=== PATIENT | male | born 1950 | race Asian ===

== ENCOUNTER 2017-09-16 09:56 | Emergency (ER) | payer MEDICARE, OTHER ==
[2017-09-16 11:55] VITALS: BP 141/95
--- NOTE | 2017-09-16 12:32 | UC ---
Kyle Mendez Gabriel, scribed for Celia Tinoco MD on 09/16/17 at 1223 . Eye Complaint HPI - HPI Summary HPI Summary: This patient is a 67 year old M presenting to [facility] [place] accompanied by his with a chief complaint of left eye pain since 6 days ago. The patient rates the pain 5/10 in severity. Symptoms moderately alleviated by Tylenol. Patient reports a painful rash on the left side of his face that spreads into his hairline, swollen and painful left lymph node, low grade fever 99F, decreased vision in the left eye, GONZALEZ, and a swollen left eye lid. Pt states his scalp is senstive. The pain is affecting his sleep, he saw his eye doctor yesterday and they found nothing significant but pt states did not have rash at this time just some eye discomfort. He has a follow up appointment with his PCP tomorrow. Pt states a family member saw rash today, concerned for shingles and sent pt for treatment . Patients medication reviewed during this visit. - History of Current Complaint Chief Complaint: UCRash Stated Complaint: RASH Time Seen by Provider: 09/16/17 12:11 Hx Obtained From: Patient Onset/Duration: Lasting Days - 5, Still Present Timing: Constant Severity Initially: Mild Severity Currently: Moderate Pain Intensity: 5 Pain Scale Used: 0-10 Numeric Location of Injury: Eye Lid (upper) Aggravating Factor(s): Nothing Alleviating Factor(s): Nothing Associated Signs And Symptoms: Positive: Drainage (Clear), Fever, Swelling - Allergies/Home Medications Allergies/Adverse Reactions: Allergies Allergy/AdvReac Type Severity Reaction Status Date / Time No Known Allergies Allergy Verified 09/16/17 11:45 Home Medications: Home Medications Acetaminophen [Acetaminophen Extra Strength] 500 mg PO ONCE 09/16/17 [History Confirmed 09/16/17] PMH/Surg Hx/FS Hx/Imm Hx Previously Healthy: Yes Other History Of: Negative For: Hepatitis B, Hepatitis C - Surgical History Surgical History: Yes Surgery Procedure, Year, and Place: inguinal hernia 2015 - Family History Known Family History: Positive: Hypertension Negative: Renal Disease, Respiratory Disease, Seizure Disorder - Social History Occupation: Retired Lives: With Family Alcohol Use: None Substance Use Type: None Smoking Status (MU): Never Smoked Tobacco Review of Systems Constitutional: Fever Skin: Rash - that is painful Eyes: Blurred Vision, Other - swollen upper eye lid on the left ENT: Other - swollen lymph nodes on the left Neurological: Headache All Other Systems Reviewed And Are Negative: Yes Physical Exam Triage Information Reviewed: Yes Appearance: Well-Appearing, No Pain Distress, Well-Nourished Vital Signs: Initial Vital Signs Temp 99.4 F 09/16/17 11:47 Pulse 62 09/16/17 11:47 Resp 16 09/16/17 11:47 BP 141/95 09/16/17 11:47 Pulse Ox 100 09/16/17 11:47 Eyes: Positive: Other: - JULIO, EOM intact and full no drainage no photophobia Pt with vesicular rash left frontal area and left upper lid ENT Exam: Normal ENT: Positive: Normal ENT inspection, Pharynx normal, TMs normal Dental Exam: Normal Neck exam: Normal Neck: Positive: Supple, Nontender Respiratory Exam: Normal Respiratory: Positive: Chest non-tender, Lungs clear, Normal breath sounds, No respiratory distress Cardiovascular Exam: Normal Cardiovascular: Positive: RRR, No Murmur Musculoskeletal Exam: Normal Neurological Exam: Normal Psychological Exam: Normal Skin: Positive: Other - left upper frontal area, left hairline vesicular lesion , yellow crusted top, diffusely erythematous base tender to palp Re-Evaluation - Re-Evaluation First Eval Re-Evaluation Time: 12:39 Change: Unchanged Comment: I contacted Dr. Davis at [facility] and they have agreed to see the patient within the hour. I have notified the patient and will be discharging him to follow up there. Eye Complaint Course/Dx - Course Course Of Treatment: Pt with rash to forehead, hair and left upper lid concerning for shingles. pt with sx x 5 days. d/w pt at length - will start valtrex, gabapentin. d/w Dr. Rahman office - pt to go directly there from . Pt and comfortable and in agreement with plan. pt also with PCP appt tomorrow. BP noted and advised to follow up with PCP - Differential Dx/Diagnosis Provider Diagnoses: shingles left V1 distribution. Elevated blood pressure without a previous diagnoses of hypertension Discharge - Discharge Plan Condition: Stable Disposition: HOME Prescriptions: Gabapentin CAP(*) [Neurontin 100 mg CAP(*)] 100 mg PO TID #30 cap ValACYclovir (*) [Valtrex 1 GM(*)] 1 gm PO TID #30 tab Patient Education Materials: Sawyer (ED) Referrals: Elida Washington MD [Primary Care Provider] - Additional Instructions: Your blood pressure was elevated during today's visit. Please have it rechecked at your appointment tomorroww Take Valtrex 3 times a day as prescribed Okay to alternate ibuprofen (advil, motrin)400mg and tylenol every 3hours for pain. Take with food. Do NOT take for more than 4-5 days Take gabapentin as prescribed Keep your appointment with your primary doctor tomorrow as scheduled The eye doctor, Dr. Sampson, at [facility] would like to see you today - go immediately to her office as she is expecting you and will check you between her other scheduled appointment The documentation as recorded by the Kyle rutledge Gabriel accurately reflects the service I personally performed and the decisions made by me, Celia Tinoco MD.
== END 2017-09-16 12:45 | disposition home or self-care (01) ==
LOC: UCEAST 09:56
DX: B02.9 Zoster without complications (principal); H02.844 Edema of left upper eyelid; R59.0 Localized enlarged lymph nodes; R03.0 Elevated blood-pressure reading, without diagnosis of hypertension
CPT/HCPCS: 99212; G0463

== ENCOUNTER → 2018-09-21 12:04 | Emergency (ER) | payer MEDICARE, OTHER ==
[~2018-09-21 12:04] MED LIST: Iohexol 300* (CONTRAST) 10 ML SDV IV ONE; NS 0.9% 1000 ML** 1,000 ML IV ONE; Pantoprazole TAB * 40 MG TAB PO ONE
--- NOTE | 2018-09-21 12:57 | ED ---
Abdominal Pain/Male - HPI Summary HPI Summary: Pt is a 68 y/o M presenting to the ED with a chief complaint of abd pain onset last night post-colonoscopy. Pt reports pain in the epigastric region and higher blood pressure than normal. Pt denies nausea, vomiting, or blood in stool. - History of Current Complaint Chief Complaint: EDAbdPain Stated Complaint: COLONOSCOPY YESTERDAY NOW PAIN Time Seen by Provider: 09/21/18 12:34 Hx Obtained From: Patient Onset/Duration: Sudden Onset, Lasting Hours, Still Present Timing: Constant, Lasting Hours Severity Initially: Mild Severity Currently: Mild Pain Intensity: 3 Pain Scale Used: 0-10 Numeric Location: Epigastric Radiates: No Character: Cramping Aggravating Factor(s): Nothing Alleviating Factor(s): Nothing Associated Signs And Symptoms: Negative: Blood in Stool, Nausea, Vomiting - Allergies/Home Medications Allergies/Adverse Reactions: Allergies Allergy/AdvReac Type Severity Reaction Status Date / Time No Known Allergies Allergy Verified 09/21/18 12:18 PMH/Surg Hx/FS Hx/Imm Hx Previously Healthy: Yes Endocrine/Hematology History: Denies: Hx Diabetes Cardiovascular History: Denies: Hx Hypertension - Surgical History Surgery Procedure, Year, and Place: inguinal hernia 2016 Infectious Disease History: No Infectious Disease History: Denies: Hx Shingles, Traveled Outside the [place] in Last 30 Days - Family History Known Family History: Positive: Hypertension Negative: Renal Disease, Respiratory Disease, Seizure Disorder - Social History Alcohol Use: None Substance Use Type: Reports: None Smoking Status (MU): Never Smoked Tobacco Review of Systems Negative: Fever Positive: Abdominal Pain. Negative: Vomiting, Nausea All Other Systems Reviewed And Are Negative: Yes Physical Exam - Summary Physical Exam Summary: Appearance: Well appearing, no pain distress Skin: warm, dry, reflects adequate perfusion Head/face: normal Eyes: EOMI, JULIO ENT: normal Neck: supple, non-tender Respiratory: CTA, breath sounds present Cardiovascular: RRR, pulses symmetrical Abdomen: mild epigastric tenderness, soft Musculoskeletal: normal, strength/ROM intact Neuro: normal, sensory motor intact, A&Ox3 Triage Information Reviewed: Yes Vital Signs On Initial Exam: Initial Vitals Temp Pulse Resp BP Pulse Ox 97.8 F 56 17 145/86 100 09/21/18 12:14 09/21/18 12:14 09/21/18 12:14 09/21/18 12:14 09/21/18 12:14 Vital Signs Reviewed: Yes Diagnostics - Vital Signs Vital Signs Temp Pulse Resp BP Pulse Ox 09/21/18 12:14 97.8 F 56 17 145/86 100 - Laboratory Result Diagrams: 09/21/18 13:14 09/21/18 13:14 Lab Statement: Any lab studies that have been ordered have been reviewed, and results considered in the medical decision making process. - CT Abd/pelv CT CT Interpretation Completed By: Radiologist Summary of CT Findings: 1.No evidence for acute finding. 2.Large amount retained stool. ED physician has reviewed this report. - EKG 1327 Cardiac Rate: Bradycardia - 49bpm EKG Rhythm: Sinus Bradycardia ST Segment: Normal Ectopy: None Abdominal Pain Male Course/Dx - Course Course Of Treatment: Pt is a 68 y/o M presenting to the ED with a chief complaint of abd pain onset last night post-colonoscopy. Pt reports pain in the epigastric region and higher blood pressure than normal. Pt denies nausea, vomiting, or blood in stool. The abd/pelv CT is negative for any acute findings. He will be discharged with a dx of abd pain, nonspecific. - Diagnoses Provider Diagnoses: Nonspecific abdominal pain Discharge - Sign-Out/Discharge Documenting (check all that apply): Patient Departure Patient Received Moderate/Deep Sedation with Procedure: No - Discharge Plan Condition: Stable Disposition: HOME Referrals: Elida Washington MD [Primary Care Provider] - Additional Instructions: Please follow up with your primary care provider in the next 3 days. Return to the ED with any new or worsening symptoms. - Attestation Statements Document Initiated by Scribe: Yes Documenting Scribe: Hayley Carias Provider For Whom Otilio is Documenting (Include Credential): Jaison Borja MD. Scribe Attestation: Hayley Mendez, scribed for Jaison Borja MD. on 09/21/18 at 1610. Status of Scribe Document: Ready
[2018-09-21 13:21] LABS: ABS Basophils 0 10^3/ul (0-0.2); ABS Eosinophils 0.1 10^3/ul (0-0.6); ABS Lymphocytes 1.3 10^3/ul (1.0-4.8); ABS Monocytes 0.4 10^3/ul (0-0.8); ABS Neutrophils 3.4 10^3/ul (1.5-7.7); ABS Nucleated RBC 0 10^3/ul; Eosinophil % 2.2 %; Hematocrit 43 % (42-52); Hemoglobin 14.3 g/dl (14.0-18.0); Lymphocyte % 24.9 %; Mean Corpuscular HGB Conc 34 g/dl (31-36); Mean Corpuscular Hemoglobin 31 pg (27-31); Mean Corpuscular Volume 93 fL (80-94); Mean Platelet Volume 8.6 fL (7.4-10.4); Nucleated Red Blood Cells % 0.1; Platelet Count 229 10^3/ul (150-450); Red Blood Count 4.63 10^6/ul (4.00-5.40); Red Cell Distribution Width 13 % (10.5-15); White Blood Count 5.2 10^3/ul (3.5-10.8)
[2018-09-21 13:39] LABS: ALT 21 U/L (7-52); AST 31 U/L (13-39); Albumin 4.1 g/dL (3.2-5.2); Albumin/Globulin Ratio 1.4 (1-3); Alkaline Phosphatase 69 U/L (34-104); Anion Gap 6 mmol/L (2-11); BUN/Creatinine Ratio 16.8 (8-20); Blood Urea Nitrogen 18 mg/dL (6-24); C Reactive Protein < 1.00 mg/L (<8.01); CO2 Carbon Dioxide 29 mmol/L (22-32); Calcium 9.1 mg/dL (8.6-10.3); Chloride 104 mmol/L (101-111); EGFR African American 83.7 (>60); EGFR Non-African American 69.1 (>60); Globulin 2.9 g/dL (2-4); Glucose 96 mg/dL (70-100); Potassium 3.8 mmol/L (3.5-5.0); Sodium 139 mmol/L (135-145)
[2018-09-21 16:48] VITALS: BP 130/84
--- NOTE | 2018-09-21 19:04 | CONS ---
GASTROENTEROLOGY CONSULT: DATE: 09/21/18 - EMERGENCY DEPT CONSULTING PHYSICIAN: Dr. Jaison Borja, Emergency Room. REASON FOR CONSULTATION: Epigastric pain the day after colonoscopy. HISTORY: This generally quite heathy 68-year-old man, last night around 7 or 8 p.m., began noting an epigastric distress. It was not well localized and central. There was no nausea, vomiting, diarrhea, or fever. He slept well overnight and in the morning had his normal breakfast and went to a [employer]redith [employer] class for 45 minutes. He then received a phone call from the endoscopy nurses as a routine followup. He complained of the epigastric distress and there was no obvious explanation during a sequence of phone calls and he was directed to the emergency room. Immediately after the procedure, he was feeling fine, he went home. He took a nap. Then he had lunch, which was considerable including chicken, vegetables, a banana and more. A few hours later, he had dinner that was also a sizable meal. He first began having some distress afterwards. Today mid-day, he just continues to complain of a little soreness in the epigastric area. He says he never had anything like this before. PAST MEDICAL HISTORY: Generally negative. Three of his 7 hospital visits since 2010 had been for colon polyps or their followup. He was seen once for dizziness and giddiness, 09/21/13. In 2010, he was on no medications and continues that way other than possibly a vitamin D supplement. SOCIAL HISTORY: He is and he lives in [place] since 1990. REVIEW OF SYSTEMS: No history of syncope, palpitations, seizure, TIA, CVA, IN, valvular disease, hepatitis, or gross hematuria. He has not had any prostate problems. EXAM: He is a slender, healthy-appearing man in no distress at this time. Temperature 97.8, pulse 56, blood pressure 125/86. HEENT exam is unremarkable. His lungs are clear and heart sounds are regular. The abdomen is flat with normal bowel sounds. The abdomen is soft. There is some subjective tenderness to deep palpation and a christina shaped area in the epigastrium. Rectal deferred. Extremities show no edema. LABS: White count 5.2, hemoglobin 14.3. LFTs normal. CRP less than 1. Lipase 21. IMAGING REVIEW: CT scan showed no acute finding. IMPRESSION: Most likely this is abdominal wall pain, somehow related to the procedure. There is no sign of any intraluminal gastrointestinal dysfunction. He has been able to eat. His blood pressure is up just a little bit, not worthy of intervention at the moment. I agree with short-term empiric PPI therapy in case there is an unexplained peptic component to this. [id number]/CPS #: [id number] MTDD
== END | disposition home or self-care (01) ==
LOC: ED 12:04
DX: R10.13 Epigastric pain (principal); R03.0 Elevated blood-pressure reading, without diagnosis of hypertension; R11.2 Nausea with vomiting, unspecified; R00.1 Bradycardia, unspecified; Z98.890 Other specified postprocedural states
CPT/HCPCS: 36415; 74177; 80053; 83690; 84484; 85025; 86140; 93005; 96360; 96361; 99283; A9270-GY; Q9967

== ENCOUNTER 2019-01-30 19:07 | Emergency (ER) | payer MEDICARE, OTHER ==
[2019-01-30] MEDS ORDERED: Acetaminophen TAB* 325 MG PO ONE (20:03)
--- NOTE | 2019-01-30 20:03 | UC ---
Complaint Male HPI - HPI Summary HPI Summary: sudden onset this evening of pain with urination and fever---decrease po intake today--- - History of Current Complaint Chief Complaint: UCGU Stated Complaint: BLOOD IN URINE Time Seen by Provider: 01/30/19 19:44 Hx Obtained From: Patient Onset/Duration: Sudden Onset, Lasting Hours Timing: Constant Severity Initially: Mild Severity Currently: Moderate Character: Burning Aggravating Factor(s): Voiding Associated Signs And Symptoms: Positive: Fever, Hematuria, Dysuria, Appetite - decreased. Negative: Back Pain, Vomiting(# Of Episodes =), Penile Swelling - Allergies/Home Medications Allergies/Adverse Reactions: Allergies Allergy/AdvReac Type Severity Reaction Status Date / Time No Known Allergies Allergy Verified 01/30/19 19:36 Home Medications: Home Medications NK [No Home Medications Reported] 01/30/19 [History Confirmed 01/30/19] PMH/Surg Hx/FS Hx/Imm Hx Previously Healthy: Yes Other History Of: Negative For: Hepatitis B, Hepatitis C - Surgical History Surgical History: Yes Surgery Procedure, Year, and Place: inguinal hernia 2015 - Family History Known Family History: Positive: Hypertension Negative: Renal Disease, Respiratory Disease, Seizure Disorder - Social History Occupation: Employed Part-time Lives: With Family Alcohol Use: None Substance Use Type: None Smoking Status (MU): Never Smoked Tobacco Review of Systems All Other Systems Reviewed And Are Negative: Yes Constitutional: Positive: Fever, Chills Skin: Positive: Negative Eyes: Positive: Negative ENT: Positive: Negative Respiratory: Positive: Negative Cardiovascular: Positive: Negative Gastrointestinal: Positive: Negative Genitourinary: Positive: Dysuria, Hematuria, Frequency Motor: Positive: Negative Neurovascular: Positive: Negative Musculoskeletal: Positive: Negative Neurological: Positive: Negative Is Patient Immunocompromised?: No Physical Exam Triage Information Reviewed: Yes Appearance: Well-Nourished, Ill-Appearing - mild, Pain Distress - mild Vital Signs: Initial Vital Signs Temp 103.4 F 01/30/19 19:28 Pulse 94 01/30/19 19:28 Resp 18 01/30/19 19:28 BP 119/63 01/30/19 19:28 Pulse Ox 96 01/30/19 19:28 Vital Signs Reviewed: Yes Eye Exam: Normal Eyes: Positive: Conjunctiva Clear ENT Exam: Normal ENT: Positive: Normal ENT inspection, Hearing grossly normal. Negative: Trismus , Muffled voice, Hoarse voice Dental Exam: Normal Neck exam: Normal Neck: Positive: Supple, Nontender, No Lymphadenopathy Respiratory Exam: Normal Respiratory: Positive: Chest non-tender, No respiratory distress, No accessory muscle use Cardiovascular Exam: Normal Cardiovascular: Positive: RRR, Pulses Normal, Brisk Capillary Refill Abdominal Exam: Normal Abdomen Description: Positive: Nontender, No Organomegaly, Soft. Negative: CVA Tenderness (R), CVA Tenderness (L) Bowel Sounds: Positive: Present Musculoskeletal Exam: Normal Musculoskeletal: Positive: Strength Intact, ROM Intact, No Edema Neurological Exam: Normal Neurological: Positive: Alert, Muscle Tone Normal Psychological Exam: Normal Skin Exam: Normal Complaint Male Course/Dx - Course Course Of Treatment: Tylenol, send to [facility] [place] for comprehensive assessment of fever and r/o sepsis - Differential Dx/Diagnosis Provider Diagnosis: At risk for sepsis due to urinary tract infection Discharge - Sign-Out/Discharge Documenting (check all that apply): Patient Departure All imaging exams completed and their final reports reviewed: No Studies - Discharge Plan Condition: Fair Disposition: HOME-RECOMMEND TO ED Patient Education Materials: Urinary Tract Infection in Men (ED), Fever in Adults (ED) Referrals: Elida Washington MD [Primary Care Provider] - Additional Instructions: Please go directly to the emergency department for comprehensive assessment and treatment - Billing Disposition and Condition Condition: FAIR Disposition: Home-Recommend to ED
[2019-01-30 20:19] VITALS: BP 103/63
== END 2019-01-30 20:23 | disposition home health service (06) ==
LOC: UCEAST 19:07
DX: N39.0 Urinary tract infection, site not specified (principal); R31.9 Hematuria, unspecified
CPT/HCPCS: 81003; 87077; 87086; 87186; 99212; A9270-GY; G0463

== ENCOUNTER 2019-01-30 20:42 | Emergency (ER) | payer MEDICARE, OTHER ==
[2019-01-30 21:07] LABS: Urine Appearance Cloudy; Urine Bacteria 1+ (Absent); Urine Bilirubin Negative (Negative); Urine Blood 3+ (Negative); Urine Color Yellow; Urine Glucose Negative (Negative); Urine Ketones 1+ (Negative); Urine Nitrite Negative (Negative); Urine Protein Negative (Negative); Urine Red Blood Cell 1+(3-5/hpf) (Absent); Urine Specific Gravity 1.005 (1.010-1.030); Urine Urobilinogen Negative (Negative); Urine White Blood Cell 3+(>20/hpf) (Absent)
[2019-01-30] MEDS ORDERED: cefTRIAXone(*) 1 GM in NS 0.9% 50 ML* 50 ML IVPB ONE (22:05)
[2019-01-30] MEDS ORDERED: NS 0.9% 1000 ML** 1,000 ML IV.FLUID IV ONE (22:05)
[2019-01-30 22:43] LABS: ABS Basophils 0.1 10^3/ul (0-0.2); ABS Lymphocytes 0.6 10^3/ul (1.0-4.8); ABS Monocytes 1.1 10^3/ul (0-0.8); ABS Neutrophils 12.4 10^3/ul (1.5-7.7); Eosinophil % 0.3 %; Hematocrit 39 % (42-52); Hemoglobin 13.2 g/dL (14.0-18.0); Lymphocyte % 3.9 %; Mean Corpuscular HGB Conc 34 g/dL (31-36); Mean Corpuscular Hemoglobin 31 pg (27-31); Mean Corpuscular Volume 92 fL (80-94); Mean Platelet Volume 8.5 fL (7.4-10.4); Platelet Count 200 10^3/uL (150-450); Red Blood Count 4.27 10^6 /uL (4.18-5.48); Red Cell Distribution Width 13 % (10-15); White Blood Count 14.1 10^3/uL (3.5-10.8)
[2019-01-30 22:51] LABS: Activated Partial Thrombo Time 40.9 seconds (26.0-38.0); INR 1.09 (0.82-1.09)
[2019-01-30 23:00] LABS: Albumin 3.7 g/dL (3.2-5.2); Albumin/Globulin Ratio 1.4 (1-3); BUN/Creatinine Ratio 15.8 (8-20); Calcium 8.7 mg/dL (8.6-10.3); EGFR African American 89.4 (>60); EGFR Non-African American 73.9 (>60); Globulin 2.6 g/dL (2-4); Potassium 3.4 mmol/L (3.5-5.0); Total Bilirubin 1.1 mg/dL (0.2-1.0); Total Protein 6.3 g/dL (6.4-8.9)
--- NOTE | 2019-01-30 23:04 | ED ---
GI/ HPI - HPI Summary HPI Summary: 68 year old male presents with dysuria and hematuria today. He states he's been having a fever. Denies any flank pain. He has never had this before. Denies any cough. No chest pressure or shortness of breath. No vomiting. No nausea. He states he feels okay and just has a fever. was given Tylenol by urgent care. has no medical conditions. no abdominal pain. no history of kidney stones. - History of Current Complaint Chief Complaint: EDUrogenitalProblems Time Seen by Provider: 01/30/19 21:57 Stated Complaint: BLOOD IN URINE PER PT Pain Intensity: 8 - Allergy/Home Medications Allergies/Adverse Reactions: Allergies Allergy/AdvReac Type Severity Reaction Status Date / Time No Known Allergies Allergy Verified 01/30/19 20:48 PMH/Surg Hx/FS Hx/Imm Hx Endocrine/Hematology History: Denies: Hx Diabetes, Hx Thyroid Disease Cardiovascular History: Denies: Hx Hypertension Respiratory History: Denies: Hx Asthma, Hx Chronic Obstructive Pulmonary Disease (COPD) GI History: Denies: Hx Ulcer History: Denies: Hx Renal Disease - Surgical History Surgery Procedure, Year, and Place: inguinal hernia 2016 Infectious Disease History: Yes Infectious Disease History: Denies: Hx Hepatitis, Hx Human Immunodeficiency Virus (HIV), Hx Shingles, Traveled Outside the [place] in Last 30 Days - Family History Known Family History: Positive: Hypertension Negative: Renal Disease, Respiratory Disease, Seizure Disorder - Social History Alcohol Use: Occasionally Substance Use Type: Reports: None Smoking Status (MU): Never Smoked Tobacco Review of Systems Negative: Fever Negative: Chest Pain Negative: Shortness Of Breath Negative: Abdominal Pain Positive: dysuria, hematuria. Negative: flank pain All Other Systems Reviewed And Are Negative: Yes Physical Exam Triage Information Reviewed: Yes Vital Signs On Initial Exam: Initial Vitals Temp Pulse Resp BP Pulse Ox 101 F 83 15 126/68 95 01/30/19 20:47 01/30/19 20:47 01/30/19 20:47 01/30/19 20:47 01/30/19 20:47 Vital Signs Reviewed: Yes Appearance: Positive: Well-Appearing Skin: Positive: Warm, Dry Head/Face: Positive: Normal Head/Face Inspection Eyes: Positive: Normal, Conjunctiva Clear ENT: Positive: Pharynx normal Respiratory/Lung Sounds: Positive: Clear to Auscultation, Breath Sounds Present Cardiovascular: Positive: Normal, RRR Abdomen Description: Positive: Nontender, Soft. Negative: CVA Tenderness (R), CVA Tenderness (L) Bowel Sounds: Positive: Present Musculoskeletal: Positive: Normal Neurological: Positive: Normal Psychiatric: Positive: Normal Diagnostics - Vital Signs Vital Signs Temp Pulse Resp BP Pulse Ox 01/30/19 22:12 97 01/30/19 22:03 80 97/76 96 01/30/19 22:02 74 97 01/30/19 20:47 101 F 83 15 126/68 95 - Laboratory Lab Results: Lab Results 01/30/19 01/30/19 01/30/19 Range/Units 20:56 22:33 22:33 WBC 14.1 H (3.5-10.8) 10^3/uL RBC 4.27 (4.18-5.48) 10^6 /uL Hgb 13.2 L (14.0-18.0) g/dL Hct 39 L (42-52) % MCV 92 (80-94) fL MCH 31 (27-31) pg MCHC 34 (31-36) g/dL RDW 13 (10-15) % Plt Count 200 (150-450) 10^3/uL MPV 8.5 (7.4-10.4) fL Neut % (Auto) 87.7 % Lymph % (Auto) 3.9 % Anderson % (Auto) 7.7 % Eos % (Auto) 0.3 % Baso % (Auto) 0.4 % Absolute Neuts (auto) 12.4 H (1.5-7.7) 10^3/ul Absolute Lymphs (auto) 0.6 L (1.0-4.8) 10^3/ul Absolute Monos (auto) 1.1 H (0-0.8) 10^3/ul Absolute Eos (auto) 0.0 (0-0.6) 10^3/ul Absolute Basos (auto) 0.1 (0-0.2) 10^3/ul Absolute Nucleated RBC 0.0 10^3/ul Nucleated RBC % 0.0 INR (Anticoag Therapy) 1.09 (0.82-1.09) APTT 40.9 H (26.0-38.0) seconds Sodium (135-145) mmol/L Potassium (3.5-5.0) mmol/L Chloride (101-111) mmol/L Carbon Dioxide (22-32) mmol/L Anion Gap (2-11) mmol/L BUN (6-24) mg/dL Creatinine (0.67-1.17) mg/dL Est GFR ( Amer) (>60) Est GFR (Non-Af Amer) (>60) BUN/Creatinine Ratio (8-20) Glucose (70-100) mg/dL Lactic Acid (0.5-2.0) mmol/L Calcium (8.6-10.3) mg/dL Total Bilirubin (0.2-1.0) mg/dL AST (13-39) U/L ALT (7-52) U/L Alkaline Phosphatase (34-104) U/L Total Protein (6.4-8.9) g/dL Albumin (3.2-5.2) g/dL Globulin (2-4) g/dL Albumin/Globulin Ratio (1-3) Urine Color Yellow Urine Appearance Cloudy Urine pH 6.0 (5-9) Ur Specific Blanco 1.005 L (1.010-1.030) Urine Protein Negative (Negative) Urine Ketones 1+ A (Negative) Urine Blood 3+ A (Negative) Urine Nitrate Negative (Negative) Urine Bilirubin Negative (Negative) Urine Urobilinogen Negative (Negative) Ur Leukocyte Esterase 3+ A (Negative) Urine WBC (Auto) 3+(>20/hpf) A (Absent) Urine RBC (Auto) 1+(3-5/hpf) A (Absent) Urine Bacteria 1+ A (Absent) Urine Glucose Negative (Negative) 01/30/19 01/30/19 Range/Units 22:33 22:33 WBC (3.5-10.8) 10^3/uL RBC (4.18-5.48) 10^6 /uL Hgb (14.0-18.0) g/dL Hct (42-52) % MCV (80-94) fL MCH (27-31) pg MCHC (31-36) g/dL RDW (10-15) % Plt Count (150-450) 10^3/uL MPV (7.4-10.4) fL Neut % (Auto) % Lymph % (Auto) % Anderson % (Auto) % Eos % (Auto) % Baso % (Auto) % Absolute Neuts (auto) (1.5-7.7) 10^3/ul Absolute Lymphs (auto) (1.0-4.8) 10^3/ul Absolute Monos (auto) (0-0.8) 10^3/ul Absolute Eos (auto) (0-0.6) 10^3/ul Absolute Basos (auto) (0-0.2) 10^3/ul Absolute Nucleated RBC 10^3/ul Nucleated RBC % INR (Anticoag Therapy) (0.82-1.09) APTT (26.0-38.0) seconds Sodium 135 (135-145) mmol/L Potassium 3.4 L (3.5-5.0) mmol/L Chloride 104 (101-111) mmol/L Carbon Dioxide 25 (22-32) mmol/L Anion Gap 6 (2-11) mmol/L BUN 16 (6-24) mg/dL Creatinine 1.01 (0.67-1.17) mg/dL Est GFR ( Amer) 89.4 (>60) Est GFR (Non-Af Amer) 73.9 (>60) BUN/Creatinine Ratio 15.8 (8-20) Glucose 107 H (70-100) mg/dL Lactic Acid 0.8 (0.5-2.0) mmol/L Calcium 8.7 (8.6-10.3) mg/dL Total Bilirubin 1.10 H (0.2-1.0) mg/dL AST 20 (13-39) U/L ALT 15 (7-52) U/L Alkaline Phosphatase 54 (34-104) U/L Total Protein 6.3 L (6.4-8.9) g/dL Albumin 3.7 (3.2-5.2) g/dL Globulin 2.6 (2-4) g/dL Albumin/Globulin Ratio 1.4 (1-3) Urine Color Urine Appearance Urine pH (5-9) Ur Specific Blanco (1.010-1.030) Urine Protein (Negative) Urine Ketones (Negative) Urine Blood (Negative) Urine Nitrate (Negative) Urine Bilirubin (Negative) Urine Urobilinogen (Negative) Ur Leukocyte Esterase (Negative) Urine WBC (Auto) (Absent) Urine RBC (Auto) (Absent) Urine Bacteria (Absent) Urine Glucose (Negative) Result Diagrams: 01/30/19 22:33 01/30/19 22:33 Lab Statement: Any lab studies that have been ordered have been reviewed, and results considered in the medical decision making process. Re-Evaluation - Re-Evaluation First Eval Re-Evaluation Time: 23:53 Change: Improved Comment: feels good and wants to go home GIGU Course/Dx - Course Course Of Treatment: 68 year old male presents with dysuria and hematuria today. He states he's been having a fever. Denies any flank pain. He is never had this before. Denies any cough. No chest pressure or shortness of breath. No vomiting. No nausea. He states he feels okay and just has a fever. was given Tylenol by urgent care. has no medical conditions. On exam nontender flanks and nontender abdomen. wbc 14. Lactic normal. Is not tachycardic. gave dose of zosyn. Discuss admission versus going home. Patient wants to go home. Will place on a course of Bactrim. Told if developing worsening symptoms return. Patient understands agrees with plan. - Diagnoses Differential Diagnoses - Male: Pyelonephritis, Ureteral Calculi, Urinary Tract Infection Provider Diagnoses: UTI (urinary tract infection), Fever Discharge - Sign-Out/Discharge Documenting (check all that apply): Patient Departure Patient Received Moderate/Deep Sedation with Procedure: No - Discharge Plan Condition: Stable Disposition: HOME Prescriptions: Sulfamethox/Trimethoprim DS* [Bactrim DS 800/160 TAB*] 1 tab PO BID #13 tab Patient Education Materials: Urinary Tract Infection in Men (ED) Referrals: Elida Washington MD [Primary Care Provider] - Alverto Catalan MD [Medical Doctor] - Additional Instructions: Take Bactrim twice a day for 7 days, first dose given in ED Take tyenlol every 6 hours for pain drink plenty of fluids a referral given for urology Follow up with primary in 7 days Return to ED if develop persistent fever or any new or worsening symptoms - Billing Disposition and Condition Condition: STABLE Disposition: Home
[2019-01-30] MEDS ORDERED: Sulfamethox/Trimethoprim DS 800/160* TAB PO ONE (23:54)
[2019-01-31 00:37] VITALS: BP 110/63
== END 2019-01-31 00:36 | disposition home or self-care (01) ==
LOC: ED 20:42
DX: N39.0 Urinary tract infection, site not specified (principal); R30.0 Dysuria; R31.9 Hematuria, unspecified; R50.9 Fever, unspecified
CPT/HCPCS: 36415; 74176; 80053; 81003; 81015; 83605; 85025; 85610; 85730; 87040; 96365; 96366; 99284; A9270-GY; J0696